=== PATIENT | female | born 1955 | race Asian ===

== ENCOUNTER 2017-02-22 07:30 | Day surgery (SDC) | payer BC ==
[2017-02-21 11:11] VITALS: Ht 162.6 cm; Wt 51.0 kg
[2017-02-22] VITALS (13 sets, daily range): BP systolic 116–159; BP diastolic 57–73; PULSE 46–90; RESP 16–28
[~2017-02-22] VITALS: Ht 162.6 cm; Wt 51.0 kg
[~2017-02-22 07:30] MED LIST: LACTATED RINGER'S 1,000 ML IV* SCH
--- NOTE | 2017-02-22 09:09 | HPN ---
Date/Time of Note Date/Time of Note DATE: 02/22/17 TIME: 09:09 Interval H&P Admission Note Pt. seen H&P reviewed: No system changes PAULA VILLEDA MD February 22, 2017 09:09
[2017-02-22] MEDS ORDERED: MIDAZOLAM 1 MG/ML 2 ML INJ ONE (09:19)
[2017-02-22] MEDS ORDERED: FENTAnyl 50 MCG/ML VIAL ONE (09:19)
[2017-02-22] MEDS ORDERED: morphine (1 MG/ML) 10ML SYRINGE IV PRN ×2 (10:00)
[2017-02-22] MEDS ORDERED: FENTAnyl 50 MCG/ML VIAL IV PRN (10:00)
[2017-02-22] MEDS ORDERED: ONDANSETRON 4 MG INJ IV PRN (10:00)
[2017-02-22] MEDS ORDERED: DIPHENHYDRAMINE 50 MG INJ IV PRN (10:00)
[2017-02-22] MEDS ORDERED: MEPERIDINE 25 MG INJ IV PRN (10:00)
[2017-02-22] MEDS ORDERED: PROPOFOL 20 ML ONE (10:21)
[2017-02-22] MEDS ORDERED: LIDOCAINE 2% (SDV) 5 ML INJ ONE (10:21)
[2017-02-22] MEDS ORDERED: CEFAZOLIN 1 GM INJ ONE (10:21)
[2017-02-22] MEDS ORDERED: ONDANSETRON 4 MG INJ ONE (10:22)
--- NOTE | 2017-02-28 13:26 | OPR ---
DATE OF OPERATION: 02/22/2017 PREOPERATIVE DIAGNOSIS: Postmenopausal bleeding. POSTOPERATIVE DIAGNOSIS: Endometrial polyp and see pathological report. PROCEDURE PERFORMED: Endometrial polypectomy, which was pedunculated, and hysteroscopic polypectomy endometrial and hysteroscopic dilatation and curettage. SURGEON: Palomo Gupta MD ANESTHESIA: General. ANESTHESIOLOGIST: Refer to the chart. ESTIMATED BLOOD LOSS: Negligible. FLUID DEFICIT: Zero. DESCRIPTION OF PROCEDURE: Under the proper induction of general anesthesia, the patient was placed in dorsal lithotomy position. Perineal area and vaginal wall was prepped and draped in usual asepti c manner. On inspection, external genitalia revealed no gross abnormality. Weighted speculum was i ntroduced and the cervix identified. There was a pedunculated with a long stalk polyp, which was pe dunculated through the cervical os. The stalk was approximately 2 inches with a polyp size the long itudinal diameter is about 1 cm, came out of the os, which was removed with ring forceps and with co unterclockwise twist and removed without any difficulty. Due to this, the 5.5 hysteroscope was inse rted, which was connected to the inflow/outflow with the TruClear and with the routine set up. The fluid was instilled and there was a continuous leak because the cervical os was dilated due to the p edunculated endometrial polyp. At this point, we decided to use the size 9, so the cervical os was dilated gradually, and size 8 and size 9 hysteroscope was inserted and the uterine cavity was disten ded. It shows both ostia. In the left ostium, there is a visible endometrial polyp noted, which wa s also resected with TruClear blade and was retrieved in the container. After the removal of endome trial polyp, the entire cavity was curetted with a TruClear blade in usual fashion and obtained the tissue which was in the retriever. After this, all the cavity was visualized for other lesions, whi ch was negative. Also, endocervical curettage done, which was sent to pathology, and the cavity was sounded which was 8 cm prior to the hysteroscope insertion. Procedure was completed. All the inst ruments were removed from the operative field. The patient withstood the procedure well, sent to [facility] recovery room in good condition. The fluid deficit was zero. Dictated By: PALOMO FU/ETELVINA Conf#: [id number] [facility]#: [id number]
== END 2017-02-22 12:28 | disposition home or self-care (01) ==
LOC: SDS 07:30
PROVIDERS: ATTEND Obstetrics & Gynecology
DX: N84.0 Polyp of corpus uteri (principal)
CPT/HCPCS: 58563; J0690; J2250; J2405; J3010